=== PATIENT | male | born 1995 | race Caucasian/White ===

== ENCOUNTER 2016-10-23 22:15 | Emergency (ER) | END 2016-10-24 03:52 | disposition left against medical advice (07) | LOC: ER 22:15 | DX: Z53.21 Procedure and treatment not carried out due to patient leaving prior to being seen by health care provider (principal) ==

== ENCOUNTER 2019-08-10 07:48 | Emergency (ER) | payer OTHER, BC ==
[2019-08-10] MEDS ORDERED: METHOCARBAMOL 750 MG TABLET PO ONE (09:11)
[2019-08-10] MEDS ORDERED: KETOROLAC TROMETHAMINE INJ/PF 30 MG/1 ML SDV IV ONE (09:11)
--- NOTE | 2019-08-10 09:16 | ER Document Report ---
ED General - General Chief Complaint: Back Pain Stated Complaint: BACK INJURY Time Seen by Provider: 08/10/19 08:33 Notes: Patient is a 24-year-old white male with no significant past medical history who presents to the emergency department with a chief complaint of pain in the lower back that occurred after an injury just prior to arrival. The patient reports that he was bent over in a partial squat with a mostly flexed spine when he atte mpted to lift about a 40 pound box of frozen chicken at work. He states on the way up he felt a sudden pain in the central lower back. States it was sharp in nature. States that he was able to continue lifting the box and placed it on a shelf. Attempted to get his cart and walk away and felt his lower back "tightening". States he had a sudden shooting pain down the right leg to about the knee posteriorly. States after that the pain was so severe that limited his ability to ambulate. He denies any numbness tingling or weakness. Denies any saddle anesthesia. Denies any urinary or bowel incontinence or retention. TRAVEL OUTSIDE OF THE [place] IN LAST 30 DAYS: No - Related Data Allergies/Adverse Reactions: Cephalosporins Allergy (Verified 08/10/19 08:00) Past Medical History - Social History Smoking Status: Never Smoker Chew tobacco use (# tins/day): No Frequency of alcohol use: None Drug Abuse: None Family History: None Patient has suicidal ideation: No Patient has homicidal ideation: No Renal/ Medical History: Denies: Hx Peritoneal Dialysis Review of Systems - Review of Systems Musculoskeletal: Back pain -: Yes All other systems reviewed and negative Physical Exam - Vital signs Vitals: Temp Pulse Resp BP Pulse Ox 98.0 F 69 20 126/70 H 99 08/10/19 07:56 08/10/19 07:56 08/10/19 07:56 08/10/19 07:56 08/10/19 07:56 - General General appearance: Appears well, Alert - Respiratory Respiratory status: No respiratory distress Chest status: Nontender Breath sounds: Normal Chest palpation: Normal - Cardiovascular Rhythm: Regular Heart sounds: Normal auscultation - Abdominal Inspection: Normal Distension: No distension Bowel sounds: Normal Tenderness: Nontender Organomegaly: No organomegaly - Back Back: Nontender, Other - Positive straight leg raise on the right. Lower extremity strength 5 out of 5 bilaterally. 2+ DP/PT bilaterally. Gait limited by pain. No deformity step-off or crepitus. No point tenderness. - Extremities General upper extremity: Normal inspection, Nontender, Normal color, Normal ROM, Normal temperature General lower extremity: Normal inspection, Nontender, Normal color, Normal ROM, Normal temperature, Normal weight bearing. No: Ijeoma's sign - Neurological Neuro grossly intact: Yes Cognition: Normal Orientation: AAOx4 [place] Coma Scale Eye Opening: Spontaneous Joanne Coma Scale Verbal: Oriented [place] Coma Scale Motor: Obeys Commands Joanne Coma Scale Total: 15 Speech: Normal Motor strength normal: LUE, RUE, LLE, RLE Sensory: Normal - Psychological Associated symptoms: Normal affect, Normal mood - Skin Skin Temperature: Warm Skin Moisture: Dry Skin Color: Normal Course - Re-evaluation Re-evalutation: 08/10/19 10:21 X-ray showing a grade 1 retrolisthesis of L5 on S1 without spondylolysis. Likely indicative of a severe muscle spasm/strain. Counseled the patient regarding the importance of back rest and rehab. We discussed the importance of outpatient follow-up and advised to return here or any ER immediately with any new, persistent or worsening symptoms. He verbalized understood and agreed. - Vital Signs Vital signs: Temp Pulse Resp BP Pulse Ox 98.0 F 69 20 126/70 H 99 08/10/19 07:56 08/10/19 07:56 08/10/19 07:56 08/10/19 07:56 08/10/19 07:56 Discharge - Discharge Clinical Impression: Muscle spasm of back Acute lumbar myofascial strain Qualifiers: Encounter type: initial encounter Qualified Code(s): S39.012A - Strain of muscle, fascia and tendon of lower back, initial encounter Condition: Stable Disposition: HOME, SELF-CARE Instructions: Low Back Pain ([facility]) Additional Instructions: Follow-up with your regular doctor in 2 to 3 days for reevaluation. Return here or any ER immediately with any new, persistent or worsening symptoms. Prescriptions: Naproxen 500 mg PO BID #20 tablet Methocarbamol [Robaxin 750 mg Tablet] 750 mg PO Q6 PRN #40 tablet PRN Reason: Referrals: WALDEMAR STONE MD [ASSOCIATE] - Follow up as needed
[2019-08-10] MEDS ORDERED: KETOROLAC TROMETHAMINE 60 MG/2 ML SDV IM ONE (09:22)
--- NOTE | 2019-08-10 09:58 | RADIOLOGY REPORT (SQ) ---
EXAM DESCRIPTION: L SPINE WHOLE COMPLETED DATE/TIME: 08/10/2019 9:45 am REASON FOR STUDY: low back injury COMPARISON: None. NUMBER OF VIEWS: Five views including obliques. TECHNIQUE: AP, lateral, oblique, and sacral radiographic images acquired of the lumbar spine. LIMITATIONS: None. FINDINGS: MINERALIZATION: Normal. SEGMENTATION: There are 5 lumbar-type vertebral bodies. There is no transitional anatomy at the lumb osacral junction. ALIGNMENT: Grade 1 retrolisthesis of L5 relative to S1 without spondylolysis. VERTEBRAE: The lumbar vertebral body heights are preserved. There is no fracture. DISCS: The L5-S1 intervertebral disc space is narrowed. POSTERIOR ELEMENTS: Intact. There is no pars interarticularis defect. HARDWARE: None in the spine. PARASPINAL SOFT TISSUES: Normal. PELVIS: Intact. OTHER: No other finding. IMPRESSION: Grade 1 retrolisthesis of L5 relative to S1 without spondylolysis. TECHNICAL DOCUMENTATION: JOB ID: [id number] [id number]- All Rights Reserved Reading location - IP/workstation name: [email or web address]
[2019-08-10 10:43] VITALS: BP 131/67
== END 2019-08-10 10:45 | disposition home or self-care (01) ==
LOC: ER 07:48
DX: S39.012A Strain of muscle, fascia and tendon of lower back, initial encounter (principal); M54.9 Dorsalgia, unspecified; M62.830 Muscle spasm of back; X50.0XXA Overexertion from strenuous movement or load, initial encounter
CPT/HCPCS: 99283; 96374; 72110; J1885; J3490